=== PATIENT | female | born 1955 | race Caucasian/White ===

== ENCOUNTER 2019-09-20 08:14 | Outpatient (CLI) | payer MEDICARE, BC, SELFPAY ==
--- NOTE | 2019-09-20 08:41 | XR_ITS ---
WS: [id number] Right hip, AP and frog leg views, 09/20/2019 Clinical Data: RIGHT HIP PAIN Comparison: Bilateral hips, 02/13/2019. Findings: The right hip arthroplasty remains in good position. No loosening is seen. The adjacent right pelvis shows that the visualized SI joint and pubic symphysis are normal. XR/XR hip RT 2-3V wo/w pel* [id number] Impression: No change in right hip arthroplasty.
== END 2019-09-20 08:15 | disposition home or self-care (01) ==
LOC: RAD 08:21
PROVIDERS: Family Provider Family Medicine; PCP Family Medicine; Visit Provider Orthopaedic Surgery
DX: M25.551 Pain in right hip (principal); M25.552 Pain in left hip
CPT/HCPCS: 73502

== ENCOUNTER 2020-01-09 13:30 | Outpatient (RCR) | payer MEDICARE, BC, SELFPAY | END 2020-01-31 23:59 | disposition home or self-care (01) | LOC: SPT 13:30 | PROVIDERS: PCP Family Medicine; Referring Provider Orthopaedic Surgery; Visit Provider Orthopaedic Surgery | DX: Z47.89 Encounter for other orthopedic aftercare (principal) | CPT/HCPCS: 97110; 97161; 97530 ==

== ENCOUNTER 2020-02-01 06:00 | Outpatient (RCR) | payer MEDICARE, BC, SELFPAY | END 2020-02-27 10:48 | disposition home or self-care (01) | LOC: SPT 06:00 | PROVIDERS: PCP Family Medicine; Referring Provider Orthopaedic Surgery; Visit Provider Orthopaedic Surgery | DX: Z47.89 Encounter for other orthopedic aftercare (principal) | CPT/HCPCS: 97110; 97112 ==

== ENCOUNTER 2020-09-15 14:01 | Outpatient (CLI) | payer MEDICARE, BC, SELFPAY ==
--- NOTE | 2020-09-15 14:15 | XR_ITS ---
WS: [id number] Bone mineral density performed on a [employer] 09/15/2020 Clinical data: SCREENING FOR OSTEOPOROSIS Findings: The first 4 lumbar vertebral bodies demonstrated the bone mineral density of 0.779 g/cm2 for a young adult T score of -3.3. Measurement of the left forearm reveals a bone mineral density of 0.627 g/sq cm with a young adult T score of -2.8. XR/XR DEXA axial skeleton* [id number] Impression: Osteoporosis of the lumbar spine and left forearm.
== END 2020-09-15 14:02 | disposition home or self-care (01) ==
PROVIDERS: PCP Family Medicine; Visit Provider Family Medicine
DX: Z13.820 Encounter for screening for osteoporosis (principal); M81.6 Localized osteoporosis [Lequesne]
CPT/HCPCS: 77080

== ENCOUNTER 2021-03-12 09:37 | Outpatient (RCR) | payer MEDICARE, BC, SELFPAY | END 2021-04-01 23:59 | disposition home or self-care (01) | LOC: SPT 09:37 | PROVIDERS: PCP Family Medicine; Referring Provider Neurological Surgery; Visit Provider Neurological Surgery | DX: M51.36 Other intervertebral disc degeneration, lumbar region (principal); M43.06 Spondylolysis, lumbar region | CPT/HCPCS: 97110; 97161 ==

== ENCOUNTER 2022-03-06 13:34 | Emergency (ER) | payer MEDICARE, BC, SELFPAY ==
[2022-03-06 13:38] VITALS: BP 146/87; PULSE 59; RESP 18; TEMP 36.6; O2SAT 96; BMI 28.5
--- NOTE | 2022-03-06 13:47 | ECG_ITS ---
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 Measurements Intervals [place] Rate: 54 P: 36 CA: 216 QRS: -71 QRSD: 113 T: 33 QT: 425 QTc: 404 Interpretive Statements SINUS BRADYCARDIA WITH FIRST DEGREE AV BLOCK LEFT AXIS DEVIATION [QRS AXIS < -30] INCOMPLETE RIGHT BUNDLE BRANCH BLOCK No previous ECG available for comparison Electronically Signed On 03-07-2022 8:30:16 CDT by Jennifer Chiang M.D. [id number] f
--- NOTE | 2022-03-06 13:49 | XRR_ITS ---
PROCEDURE INFORMATION: Exam: XR Chest Exam date and time: 03/06/2022 2:12 PM Age: 66 years old Clinical indication: Chest wall pain/chest pain. TECHNIQUE: Imaging protocol: Radiologic exam of the chest. Views: 1 view. COMPARISON: No relevant prior studies available. FINDINGS: Tubes, catheters and devices: Probable loop recorder over the chest. Lungs: No pulmonary consolidation. Pleural spaces: No pleural effusion. No pneumothorax. Heart/Mediastinum: Borderline cardiomegaly. No gross evidence of pneumomediastinum. Diaphragm: Rounded opacity at the left base may reflect undulation of the diaphragm. A left basilar mass is difficult to exclude. Bones/joints: No gross fracture. XR/XR chest 1V portable [id number] IMPRESSION: 1. Rounded opacity at the left base may reflect undulation of the diaphragm. A left basilar mass is difficult to exclude. 2. Borderline cardiomegaly. 3. Recommend CT chest with contrast to further assess.
[2022-03-06 14:09] LABS: Basophils % 0.4 %; Eosinophils # 0.1 10^3/uL (0.0-0.8); Eosinophils % 1.6 %; Hematocrit 37.2 % (37.0-47.0); Lymphocytes # 1.6 10^3/uL (0.8-4.8); Mean Corpuscular HGB Conc 34.9 g/dL (30.0-36.0); Mean Corpuscular Hemoglobin 31.1 pg (28.0-34.0); Mean Platelet Volume 10.7 fL (7.4-10.4); Monocytes # 0.4 10^3/uL (0.2-0.9); Neutrophils # 4.69 10^3/uL (1.8-7.7); Neutrophils % 68.7 %; Nucleated Red Blood Cells % 0 %; Platelet Count 219 10^3/cmm (130-400); Red Blood Count 4.18 10^6/uL (4.1-5.3); Red Cell Distribution Width 11.9 % (12.1-15.1); White Blood Count 6.8 10^3/uL (4.0-10.0)
[2022-03-06 14:54] LABS: Alanine Aminotransferase 13 U/L (0-33); Alkaline Phosphatase 76 U/L (35-105); Blood Urea Nitrogen 14 mg/dL (8-23); Calcium 9.1 mg/dL (8.5-10.5); Carbon Dioxide 29 mmol/L (22-29); Chloride 102 mmol/L (98-107); Globulin 2.8 g/dL (1.3-4.6); Glomerular Filtration Rate 99.4 mL/min (90-130); Glucose 96 mg/dL (65-115); Osmolality Calculated 290 mOsm/kg (285-295); Sodium 140 mmol/L (136-145); Total Bilirubin 0.5 mg/dL (0.15-1.2); Total Protein 6.8 g/dL (6.6-8.7); Troponin(5th) Baseline 8 ng/L (0-10)
[2022-03-06 15:11] LABS: Anion Gap 13.2 (5-19); Aspartate Amino Transferase 20 U/L (0-32); Potassium 4.2 mmol/L (3.5-5.1)
[2022-03-06 16:40] LABS: Troponin 5 2HR 9.03 ng/L (0-10)
[2022-03-06 17:03] VITALS: BP 146/81; PULSE 53; RESP 16; O2SAT 97
--- NOTE | 2022-03-06 17:16 | ECG_ITS ---
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 Measurements Intervals [place] Rate: 55 P: CT: QRS: -83 QRSD: 121 T: 35 QT: 436 QTc: 418 Interpretive Statements ATRIAL FIBRILLATION WITH SLOW VENTRICULAR RESPONSE LEFT AXIS DEVIATION RIGHT BUNDLE BRANCH BLOCK Compared to ECG 03/06/2022 13:47:17 Right bundle-branch block now present Sinus bradycardia no longer present First degree AV block no longer present Incomplete right bundle-branch block no longer present Electronically Signed On 03-07-2022 8:33:57 CDT by Jennifer Chiang M.D. [id number]
[2022-03-06 17:26] LABS: Troponin 5 2HR Delta 1.03 ABS# (0-10)
--- NOTE | 2022-03-06 17:32 | CTR_ITS ---
PROCEDURE INFORMATION: Exam: CTA Chest With Contrast Exam date and time: 03/06/2022 6:20 PM Age: 66 years old Clinical indication: Dyspnea; Additional info: Dizzy a fib TECHNIQUE: Imaging protocol: Computed tomographic angiography of the chest with contrast. 3D rendering (Not supervised by radiologist): MIP and/or 3D reconstructed images were created by the technologist. Radiation optimization: All CT scans at this facility use at least one of these dose optimization techniques: automated exposure control; mA and/or kV adjustment per patient size (includes targeted exams where dose is matched to clinical indication); or iterative reconstruction. Contrast material: OMNI 350; Contrast volume: 82 ml; Contrast route: INTRAVENOUS (IV); COMPARISON: CR (CHEST, ) 03/06/2022 2:12 PM RADIATION DOSE METRICS: Total DLP (mGy-cm): 378.42 FINDINGS: Tubes, catheters and devices: Metallic recorder device over the anterior chest wall. Pulmonary arteries: No pulmonary embolus or aortic dissection. Aorta: Calcification of the thoracic aorta and/or great vessels consistent with atherosclerotic vessel disease. Lungs: Unremarkable. No consolidation. No masses. Pleural spaces: Unremarkable. No pneumothorax. No pleural effusion. Heart: Severe calcified coronary artery disease. Lymph nodes: Unremarkable. No enlarged lymph nodes. Gallbladder and bile ducts: Multiple gallstones within the gallbladder. Bones/joints: Dextroscoliosis. Soft tissues: Unremarkable. CT/CT angio chest PE protcl [id number] IMPRESSION: 1. No pulmonary embolus or aortic dissection. 2. Severe calcified coronary artery disease. 3. Multiple gallstones within the gallbladder.
[2022-03-06] MEDS: iohexol 350 mg/mL 100 mL Btl 95 ML IV (18:23)
[2022-03-06 20:20] LABS: Troponin 5 6HR 8.49 ng/L (0-10)
[2022-03-06 20:33] LABS: Troponin 5 6HR Delta 0.49 ng/L (0-12)
[2022-03-06 20:48] LABS: Add Urine Microscopic? YES; Bilirubin Urine Neg (Negative); Blood Urine Neg (Negative); Glucose Urine UA Norm (Normal); Ketones Urine 1+ (Negative); Leukocyte Esterase Urine 1+ (Negative); Nitrate Urine Negative (Negative); Protein Urine Trace (Negative); Urine Appearance Clear (CLEAR); Urine Color Yellow (Yellow); Urobilinogen Urine Neg (Negative); pH Urine 5 (5-7)
[2022-03-06 20:50] LABS: Add Urine Culture? No; Bacteria Urine TRACE /hpf; RBC Urine 0-4 /hpf (0-2); WBC Urine 0-4 /hpf (0-5)
--- NOTE | 2022-03-06 21:10 | ED_ITS ---
HPI - Dizziness General: Chief Complaint: Dizziness Stated Complaint: Dizziness and shooting chest pain Time Seen by Provider: 03/06/22 17:02 History of Present Illness: HPI Narrative: 66-year-old female patient presents to the emergency department complaining of dizziness that started this a.m. Patient states over the last few weeks she has had some sharp pains that shoot across her left breast. Patient states she does have history of A. fib but has not been in A. fib to her knowledge. Patient does have a loop recorder and states she has not been made aware of any atrial fibrillation. Patient is on a blood thinner. Patient denies any shortness of breath. Patient denies any back pain. Patient denies any abdominal pain. Patient denies any headache or vision changes. Patient states the dizziness is currently resolved at this time. Patient denies any fever cough or congestion. Associated symptoms: Reports chest pain; Denies change in hearing, chills, diaphoresis, ear discharge, headache(s), malaise, nausea, nasal congestion, palpitations, syncope, tinnitus or vomiting Associated neuro symptoms: Deny confusion, dysphagia or numbness in extremities Review of Systems Const: Denies: fever(s), chills, body aches, change in appetite, change in weight, fatigue, malaise or diaphoresis Eyes: Denies: change in vision, blurry vision, blind spots, photophobia, eye discomfort, eye discharge, eye redness, floaters or seeing flashes ENMT: Denies: throat pain, uvular edema, enlarged tonsils, odynophagia, hoarseness, mouth pain, swelling of lips/tongue, oral sores, bleeding gums, dental pain, dry mouth, ear or mastoid pain, ear discharge, change in hearing, tinnitus, disequilibrium, nasal discharge, nasal congestion, post nasal drip or sinus pain Card: Reports: chest pain; Denies: palpitations, irregular heart rhythm, edema, swelling of feet/ankles, lightheadedness, syncope, pre-syncope, dyspnea on exertion, orthopnea, leg pain with exertion or acrocyanosis Resp: Denies: dyspnea, productive cough, non-productive cough, wheezing, stridor, pain on inspiration, change in phlegm color, hemoptysis or chest congestion GI: Denies: abdominal pain, nausea, vomiting, hematemesis, dysphagia, diarrhea, constipation, GI cramping, change in bowel habits or rectal pain : Denies: flank pain, difficulty voiding, dysuria, urinary frequency, urinary urgency, urinary hesitancy or hematuria Musc: Denies: neck pain, back pain, extremity pain, extremity swelling, joint pain, joint swelling, joint redness, joint warmth or deformity Skin/Breast: Denies: rash, pruritus, erythema, sores, new lesions, changes in skin color or dry skin Neuro: Reports: dizziness; Denies: headache(s), numbness in extremities, weakness in extremities, sensory changes, lack of coordination, difficulty walking, frequent falls, vertigo, confusion, behavioral changes, Slurred speech present, difficulty communicating thoughts or seizure-like activity Psych: Denies: anxiety, depression, suicidal ideation or homicidal ideation Endo: Denies: polyuria, polydipsia, tired all the time, cold intolerance, excessive sweating, flushing, hot flashes or heat intolerance Sean/Lymph: Denies: easy bruising, easy bleeding, petechiae, purpura, enlarged lymph nodes or tender lymph nodes All/Imm: Denies: urticaria, throat swelling, tongue swelling, facial swelling, acute wheezing or itchy eyes PFSH ED PFSH: Medical History Atrial fibrillation Dyslipidemia Hypertension Family History Father Cancer Social History Smoking and tobacco status: never smoked Physical Exam Const: COMMON NORMALS: no acute distress, patient oriented x3, healthy appearing, alert and well nourished GENERAL APPEARANCE: cooperative, comfortable, well kempt and well developed; not ill appearing ORIENTATION/CONSCIOUSNESS: Yes awake, Yes oriented to person, Yes oriented to place and Yes oriented to time HENMT: COMMON NORMALS: normocephalic, atraumatic, hearing grossly normal bi laterally, external ears normal, EAC's normal, TM's normal bilaterally, Normal external nose present, Normal nasal mucous membranes and turbinates present and moist oral mucous membranes HEAD & SCALP: normal to inspection, normocephalic and atraumatic FACE & SINUS: normal facial exam, sinuses nontender and face symmetric NOSE: Normal external nose present, Normal nares present, Normal nasal mucous membranes and turbinates present, No nasal discharge present and Abnormal external nose present EXTERNAL EAR: Yes external ears normal and Yes mastoids normal EXTERNAL AUDITORY CANAL: EAC's normal TYMPANIC MEMBRANE: TM's normal bilaterally MOUTH: Normal oral and palatal mucosa present, lip normal, tongue normal and Normal salivary glands and ducts present THROAT: no uvular edema Eye: COMMON NORMALS: Equal, round and reactive pupils present, EOMs intact bilaterally, conjunctivae normal and no scleral icterus GENERAL EYE: appearance normal, both eyes and all related structures EYELID: eyelids normal CONJUNCTIVA: Yes conjunctivae normal SCLERA: sclerae normal CORNEA: Yes corneas normal PUPIL: Yes Equal, round and reactive pupils present Neck/C-Spine: COMMON NORMALS: full ROM, no lymphadenopathy, supple, no meningeal signs, no JVD and Thyroid normal GENERAL: Yes normal visual i nspection and Yes trachea midline THYROID: Thyroid normal CERVICAL SPINE: Yes cervical ROM normal Lymph: LYMPHATIC: no lymphadenopathy noted and no lymphedema noted Chest: COMMONS NORMALS: normal inspection of the chest and normal palpation of entire chest wall Resp: COMMON NORMALS: normal respiratory effort, No retractions, No use of accessory muscles and clear to auscultation bilaterally EFFORT & INSPECTION: Yes able to speak in complete sentences and Yes symmetric chest movement AUSCULTATION: clear to auscultation bilaterally Cardio: COMMON NORMALS: no JVD GI: COMMON NORMALS: Normal to inspection, nondistended, normoactive bowel sounds present, Soft to palpation, non-tender, no masses and no bruits INSPECTION: Yes normal to inspection AUSCULTATION: Yes normoactive bowel sounds PALPATION: Yes Soft to palpation : COMMON NORMALS: Yes no CVA tenderness, Yes normal external appearance, Yes normal appearance of the vagina, Yes normal appearance of the cervix, Yes No adnexal tenderness and Yes no masses BLADDER/KIDNEY EXAM: Yes no CVA tenderness Back/Pelvis: COMMON NORMALS: no CVA tenderness, thoracic and lumbar spine normal to inspection, no thoracic nor lumbar tenderness, thoraco-lumbar ROM normal and straight leg raise negative bilaterally THORACIC SPINE/UPPER BACK: Yes normal to inspection LUMBAR SPINE/LOWER BACK: Yes normal to inspection Extremity: COMMON NORMALS: normal to inspection, full ROM and capillary refill normal GENERAL: Yes normal exam except as noted Neuro: COMMON NORMALS: patient oriented x3, CN's II-XII intact bilaterally, moves all extremities, no focal motor deficits, no sensory deficits noted and gait normal SENSORIUM/ORIENTATION: Yes alert, Yes oriented to person, Yes oriented to place and Yes oriented to time MENINGEAL SIGNS: Yes no meningeal signs CRANIAL NERVES: Yes CN normal except as noted SPEECH: speech normal GAIT: Yes Normal gait present SENSORY EXAM: Yes extremities Psych: COMMON NORMALS: mental status grossly normal, Normal thought process present, cooperative, normal affect, speech normal, activity/motor behavior normal, denies hallucinations, denies homicidal ideation and denies suicidal ideation APPEARANCE: Yes grossly normal and Yes well kempt ATTITUDE: Yes calm ACTIVITY/MOTOR BEHAVIOR: Yes appropriate eye contact SPEECH: Yes normal speech THOUGHT PROCESS: Normal thought process present THOUGHT CONTENT: Yes Normal thought content present ATTENTION/CONCENTRATION: Yes attention grossly intact MEMORY/COGNITION: Yes memory grossly intact INSIGHT: Good insight present (Psych) JUDGEMENT: Good judgement present (Psych) Skin: COMMON NORMALS: no rashes or lesions noted, no wounds, turgor normal, no jaundice, no petechiae and no mottling GENERAL SKIN EXAM: no rashes or lesions noted and turgor normal Course Vital Signs: Vital signs: Vital Signs Temperature 98 F 03/06/22 13:38 Pulse Rate 53 L 03/06/22 17:03 Respiratory Rate 16 03/06/22 17:03 Blood Pressure 146/81 03/06/22 17:03 Pulse Oximetry 97 03/06/22 17:03 Oxygen Delivery Me thod 03/06/22 17:03 MDM - Dizziness Medical Decision Making Patient is well-appearing nontoxic and in no acute [id number] female patient presents to the emergency department complaining of dizziness that started this a.m. Patient states over the last few weeks she has had some sharp pains that shoot across her left breast. Patient states she does have history of A. fib but has not been in A. fib to her knowledge. Patient does have a loop recorder and states she has not been made aware of any atrial fibrillation. Patient is on a blood thinner. Patient denies any shortness of breath. Patient denies any back pain. Patient denies any abdominal pain. Patient denies any headache or vision changes. Patient states the dizziness is currently resolved at this time. Patient denies any fever cough or congestion. Patient heart rate is in the 50s. Patient states this is normal for her patient is currently in atrial fibrillation. Patient arrives to the emergency department chest pain and dizziness free. There was a concerning mass that nee ded to be excluded based on chest x-ray findings therefore I did order a CT chest given patient's history of A. fib I did order CTA chest there is no evidence of pulmonary emboli or gallstones noted on CTA. 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 Labs do not reveal any concerning findings. EKG does not show any ST elevation or depression. [place] was within normal limits this making cardiac ischemia very unlikely. I do not feel patient would benefit from any further emergent testing patient is medically cleared and appropriate for discharge. I did offer to check magnesium level and TSH level as I explained this can cause arrhythmias patient declines having these tests done. Lab Data : 03/06/22 14:00 03/06/22 14:00 Radiology Impressions Chest X-Ray 03/06/22 13:49 IMPRESSION: 1. Rounded opacity at the left base may reflect undulation of the diaphragm. A left basilar mass is difficult to exclude. 2. Borderline cardiomegaly. 3. Recommend CT chest with contrast to further assess. Chest CTA 03/06/22 17:32 IMPRESSION: 1. No pulmonary embolus or aortic dissection. 2. Severe calcified coronary artery disease. 3. Multiple gallstones within the gallbladder. Laboratory Results WBC 6.8 10^3/uL (4.0-10.0) 03/06/22 14:00 RBC 4.18 10^6/uL (4.1-5.3) 03/06/22 14:00 Hgb 13.0 g/dL (11.5-15.3) 03/06/22 14:00 Hct 37.2 % (37.0-47.0) 03/06/22 14:00 MCV 89.0 fl (81-99) 03/06/22 14:00 MCH 31.1 pg (28.0-34.0) 03/06/22 14:00 MCHC 34.9 g/dL (30.0-36.0) 03/06/22 14:00 RDW 11.9 % (12.1-15.1) L 03/06/22 14:00 Plt Count 219 10^3/cmm (130-400) 03/06/22 14:00 MPV 10.7 fL (7.4-10.4) H 03/06/22 14:00 Neut % (Auto) 68.7 % 03/06/22 14:00 Lymph % (Auto) 23.0 % 03/06/22 14:00 [place] % (Auto) 6.0 % 03/06/22 14:00 Eos % (Auto) 1.6 % 03/06/22 14:00 Baso % (Auto) 0.4 % 03/06/22 14:00 Neut # (Auto) 4.69 10^3/uL (1.8-7.7) 03/06/22 14:00 Lymph # (Auto) 1.6 10^3/uL (0.8-4.8) 03/06/22 14:00 [place] # (Auto) 0.4 10^3/uL (0.2-0.9) 03/06/22 14:00 Eos # (Auto) 0.1 10^3/uL (0.0-0.8) 03/06/22 14:00 Baso # (Auto) 0.0 10^3/uL (0.0-0.1) 03/06/22 14:00 Nucleated RBC % (auto) 0 % 03/06/22 14:00 Nucleated RBCs # 0.0 /100WBC 03/06/22 14:00 Sodium 140 mmol/L (136-145) 03/06/22 14:00 Potassium 4.2 mmol/L (3.5-5.1) 03/06/22 14:00 Chloride 102 mmol/L (98-107) 03/06/22 14:00 Carbon Dioxide 29 mmol/L (22-29) 03/06/22 14:00 Anion Gap 13.2 (5-19) 03/06/22 14:00 BUN 14 mg/dL (8-23) 03/06/22 14:00 Creatinine 0.6 mg/dL (0.5-0.9) 03/06/22 14:00 GFR Calculation 99.4 mL/min (90-130) 03/06/22 14:00 Glucose 96 mg/dL (65-115) 03/06/22 14:00 Calculated Osmolality 290 mOsm/kg (285-295) 03/06/22 14:00 Calcium 9.1 mg/dL (8.5-10.5) 03/06/22 14:00 Total Bilirubin 0.5 mg/dL (0.15-1.2) 03/06/22 14:00 AST 20 U/L (0-32) 03/06/22 14:00 ALT 13 U/L (0-33) 03/06/22 14:00 Alkaline Phosphatase 76 U/L (35-105) 03/06/22 14:00 Troponin T Baseline 8 ng/L (0-10) 03/06/22 14:00 Troponin T 120 Minute 9.03 ng/L (0-10) 03/06/22 15:54 Delta Troponin T 1.03 ABS# (0-10) 03/06/22 15:54 Troponin T Hi Sens 6Hr 8.49 ng/L (0-10) 03/06/22 19:55 Troponin T Hi Sens 6Hr Delta 0.49 ng/L (0-12) 03/06/22 19:55 Total Protein 6.8 g/dL (6.6-8.7) 03/06/22 14:00 Albumin 4.0 g/dL (3.5-5.2) 03/06/22 14:00 Globulin 2.8 g/dL (1.3-4.6) 03/06/22 14:00 Urine Color Yellow (Yellow) 03/06/22 20:10 Urine Appearance Clear (CLEAR) 03/06/22 20:10 Urine pH 5 (5-7) 03/06/22 20:10 Ur Specific [place] 1.000 (1.005-1.030) L 03/06/22 20:10 Urine Protein Trace (Negative) 03/06/22 20:10 Urine Glucose (UA) Norm (Normal) 03/06/22 20:10 Urine Ketones 1+ (Negative) H 03/06/22 20:10 Urine Blood Neg (Negative) 03/06/22 20:10 Urine Nitrate Negative (Negative) 03/06/22 20:10 Urine Bilirubin Neg (Negative) 03/06/22 20:10 Urine Urobilinogen Neg mg/dL (Negative) 03/06/22 20:10 Ur Leukocyte Esterase 1+ (Negative) H 03/06/22 20:10 Urine RBC 0-4 /hpf (0-2) H 03/06/22 20:10 Urine WBC 0-4 /hpf (0-5) H 03/06/22 20:10 Ur Squamous Epith Cells None /hpf (0-5) 03/06/22 20:10 Amorphous Sediment Not Reportable 03/06/22 20:10 Urine Bacteria Trace /hpf (NONE) 03/06/22 20:10 Discharge Plan Discharge Condition: Stable Prescriptions: No Action propafenone 225 mg tablet 225 mg PO Q8H magnesium oxide 250 mg magnesium tablet 500 mg PO EVERY OTHER DAY cetirizine [Zyrtec] 10 mg tablet 10 mg PO DAILY PRN (Reason: Allergy Symptoms) Xarelto 20 mg tablet 20 mg PO DAILY Rx Instructions: must administer with evening meal dorzolamide-timolol 22.3-6.8 mg/mL drops 1 drp ophthalmic (eye) BID Rx Instructions: left eye ergocalciferol (vitamin D2) 1,250 mcg (50,000 unit) capsule 1,250 mcg PO Q7D Rx Instructions: On Fridays sucralfate 100 mg/mL suspension 10 ml PO QID PRN (Reason: Stomach Upset) dicyclomine 20 mg tablet 20 mg PO QID PRN (Reason: IBS) Mucinex 1,200 mg Tablet Extended Release 12hr 1,200 mg PO Q12H PRN (Reason: Congestion) Referrals: Selene Neves DO [Primary Care Provider] - Coding Level of Care Code ED Lead Manufacturing Technician for Isaac Garces
[2022-03-06 21:32] VITALS: PULSE 58; RESP 19; O2SAT 100
== END 2022-03-06 21:34 | disposition home or self-care (01) ==
PROVIDERS: Emergency Medicine; Emergency Provider Registered Nurse; PCP Family Medicine
DX: R42 Dizziness and giddiness (principal); E78.5 Hyperlipidemia, unspecified; I10 Essential (primary) hypertension
CPT/HCPCS: 36415; 71045; 71275; 80053; 81001; 84484; 85025; 93005; 99285; Q9967

== ENCOUNTER → 2023-02-24 08:48 | Outpatient (BNVA) | payer MEDICARE, SELFPAY | PROVIDERS: PCP Family Medicine; Visit Provider Internal Medicine | DX: I48.91 Unspecified atrial fibrillation (principal); E78.5 Hyperlipidemia, unspecified; I10 Essential (primary) hypertension; Z79.01 Long term (current) use of anticoagulants | CPT/HCPCS: 99214 ==

== ENCOUNTER → 2023-07-05 12:47 | Outpatient (BNVA) | payer MEDICARE, SELFPAY | PROVIDERS: PCP Family Medicine; Referring Provider Family Medicine; Visit Provider Dermatology | DX: L82.1 Other seborrheic keratosis (principal); D48.5 Neoplasm of uncertain behavior of skin; L81.4 Other melanin hyperpigmentation; L57.8 Other skin changes due to chronic exposure to nonionizing radiation; D22.5 Melanocytic nevi of trunk | CPT/HCPCS: 11102; 99203 ==

== ENCOUNTER 2023-10-31 09:57 | Observation (INO) | payer MEDICARE, SELFPAY ==
[2023-10-31] VITALS (13 sets, daily range): BP systolic 101–159; BP diastolic 62–100; PULSE 46–64; RESP 12–81; TEMP 36.4–36.7; O2SAT 94–99; BMI 27.9
--- NOTE | 2023-10-31 10:23 | ECG_ITS ---
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 Measurements Intervals [place] Rate: 61 P: 0 LA: 0 QRS: -87 QRSD: 145 T: 66 QT: 406 QTc: 409 Interpretive Statements UNCERTAIN REGULAR RHYTHM LEFT AXIS DEVIATION [QRS AXIS < -30] INTRAVENTRICULAR CONDUCTION DELAY [130+ ms QRS DURATION] Compared to ECG 03/06/2022 17:16:38 Intraventricular conduction delay now present Atrial fibrillation no longer present Right bundle-branch block no longer present Electronically Signed On 10-31-2023 17:24:50 CDT by Madhu Hector M.D. [id number]
--- NOTE | 2023-10-31 10:23 | ED_ITS ---
Documented by User: RIKY Whitaker 10/31/23 13:30 HPI - Overdose 2 General: Chief Complaint: General Medical Stated Complaint: dr appiah, took too much Heart meds by accident Time Seen by Provider: 10/31/23 10:19 Source: patient and family (daughter) Mode of arrival: wheelchair Limitations: no limitations History of Present Illness: Patient is a nice 68-year-old female with a history of atrial fibrillation here along with her daughter for evaluation of an accidental overdose. Patient takes Rythmol for her atrial fibrillation at a dose of 225 mg every 8 hours. Patient states around 7 AM she took her normal morning dose and then approximately 2-2.5 hours later she meant to take for antibiotic tablets for an upcoming dental procedure and later noticed that she accidentally took 4 additional Rythmol. Patient upon arrival feels okay although admittedly is a little anxious. Patient has been on this medication for several years. She states other home medications include Xarelto. I have discussed case with poison control who was concerned regarding the amount. They stated that a toxic dose is usually double her usual single dose so she is obviously quite a bit above this. They did state peak life of the drug is 3.5 hours. Half-life is approximately 5 hours but can be anywhere between 2 to 10 hours depending on how she metabolizes. Side effects of this medication include seizure, bradycardia, hypotension, nausea/vomiting, dizziness as well as cardiac abnormalities including QRS widening, AV blocks, prolonged QT, V tach, and rarely torsades. Discussed case with Dr. Herrera, law writer on-call, who agrees with decision to admit to hospital. He is available for consult if needed. Recommend serial EKGs and telemetry. complaint: accidental overdose Onset (ago): hour(s) Timing confirmed by: family member Treatments Prior to Arrival: none Review of Systems 2 Eyes: Denies: change in vision or blurry vision Card: Reports: irregular heart rhythm (chronic-atrial fib); Denies: chest pain, palpitations, edema, swelling of feet/ankles, lightheadedness, syncope, pre-syncope or orthopnea Resp: Denies: dyspnea GI: Denies: abdominal pain, nausea or vomiting Neuro: Denies: headache(s), numbness in extremities, weakness in extremities, sensory changes, dizziness or confusion PFSH ED 2 PFSH: Medical History Dyslipidemia Hypertension Atrial fibrillation Family History Father Cancer Social History Smoking and tobacco/nicotine status: never used tobacco/nicotine Physical Exam 2 Const: COMMON NORMALS: no acute distress, average body habitus, patient oriented x3, no limitations, healthy appearing, alert and well nourished G ENERAL APPEARANCE: cooperative ORIENTATION/CONSCIOUSNESS: Yes awake, Yes oriented to person, Yes oriented to place and Yes oriented to time Resp: COMMON NORMALS: normal respiratory effort and clear to auscultation bilaterally AUSCULTATION: clear to auscultation bilaterally Cardio: COMMON NORMALS: regular rate and regular rhythm RATE: regular rate RHYTHM: regular rhythm Extremity: GENERAL: Yes normal exam except as noted Neuro: HEMANTH COMA SCALE: document GCS findings [place] coma scale eye opening: Spontaneous [place] coma scale verbal response: Orientated Hemanth coma scale motor response: Obey commands Hemanth coma scale total score: 15 COMMON NORMALS: patient oriented x3, moves all extremities, no focal motor deficits and no sensory deficits noted SENSORIUM/ORIENTATION: Yes alert, Yes oriented to person, Yes oriented to place and Yes oriented to time Course 2 Consultations: Consultation #1: Dr. Herrera-reported when he looked up information regarding this drug he found that toxic dose was closer to 1800 mg; he did agree with decision for admission and telemetry and serial EKGs. He did state if patient started going into a heart block or severe bradycardia we could give IV glucagon and hypertonic saline; he is available for consult on this patient if needed Consultation #2: Dr. Ibarra-will admit patient Vital Signs: Vital signs: Vital Signs Temperature 98.1 F 10/31/23 10:06 Pulse Rate 46 L 10/31/23 12:30 Respiratory Rate 12 10/31/23 12:30 Blood Pressure 101/62 10/31/23 12:30 Pulse Oximetry 96 10/31/23 12:30 Oxygen Delivery Me thod Room Air 10/31/23 12:30 MDM - Overdose Medical Decision Making Discussed with midlevel. Agree with assessment and plan agree with admission orders written for hospitalist to ICU. Dr. Bonilla aware of this patient. I consulted with cardiology and spoke to hospitalist for ICU admission. Patient will need serial EKGs and telemetry. Dr. Herrera and Dr. Ibarra who both evaluated patient here in the emergency department. She does have prolonging QTc's, bradycardia, and a first-degree AV block. She has been given sodium bicarb and IV glucagon. Differential Diagnosis Likely drug overdose and accidental drug ingestion Medical Records I reviewed the patient's medical records. Lab Data I reviewed the patient's lab results. 10/31/23 10:56 10/31/23 10:56 Laboratory Results WBC 5.30 10^3/uL (3.29-11.43) 10/31/23 10:56 RBC 4.18 10^6/uL (3.85-5.65) 10/31/23 10:56 Hgb 13.00 g/dL (11.27-16.99) 10/31/23 10:56 Hct 36.2 % (36-47) 10/31/23 10:56 MCV 86.6 fl (85-98) 10/31/23 10:56 MCH 31.1 pg (27-33) 10/31/23 10:56 MCHC 35.9 g/dL (30-55) 10/31/23 10:56 RDW 12.2 % (12.1-15.1) 10/31/23 10:56 Plt Count 225 10^3/cmm (157-399) 10/31/23 10:56 MPV 11.0 fL (7.4-10.4) H 10/31/23 10:56 Neut % (Auto) 67.1 % 10/31/23 10:56 Lymph % (Auto) 22.5 % 10/31/23 10:56 [place] % (Auto) 8.1 % 10/31/23 10:56 Eos % (Auto) 1.5 % 10/31/23 10:56 Baso % (Auto) 0.6 % 10/31/23 10:56 Neut # (Auto) 3.56 10^3/uL (1.8-7.7) 10/31/23 10:56 Lymph # (Auto) 1.2 10^3/uL (0.8-4.8) 10/31/23 10:56 [place] # (Auto) 0.4 10^3/uL (0.2-0.9) 10/31/23 10:56 Eos # (Auto) 0.1 10^3/uL (0.0-0.8) 10/31/23 10:56 Baso # (Auto) 0.0 10^3/uL (0.0-0.1) 10/31/23 10:56 Nucleated RBC % (auto) 0 % 10/31/23 10:56 Nucleated RBCs # 0.0 /100WBC 10/31/23 10:56 Sodium 135 mmol/L (136-145) L 10/31/23 10:56 Potassium 4.1 mmol/L (3.5-5.1) 10/31/23 10:56 Chloride 101 mmol/L (98-107) 10/31/23 10:56 Carbon Dioxide 25 mmol/L (22-29) 10/31/23 10:56 Anion Gap 13.1 (5-19) 10/31/23 10:56 BUN 14 mg/dL (8-23) 10/31/23 10:56 Creatinine 0.6 mg/dL (0.5-0.9) 10/31/23 10:56 GFR Calculation 98.8 mL/min (90-130) 10/31/23 10:56 Glucose 111 mg/dL (65-115) 10/31/23 10:56 Calculated Osmolality 281 mOsm/kg (285-295) L 10/31/23 10:56 Calcium 8.8 mg/dL (8.5-10.5) 10/31/23 10:56 Magnesium 2.0 mg/dL (1.7-2.3) 10/31/23 10:56 Total Bilirubin 0.5 mg/dL (0.15-1.2) 10/31/23 10:56 AST 16 U/L (0-32) 10/31/23 10:56 ALT 11 U/L (0-33) 10/31/23 10:56 Alkaline Phosphatase 70 U/L (35-105) 10/31/23 10:56 Total Protein 6.5 g/dL (6.6-8.7) L 10/31/23 10:56 Albumin 3.9 g/dL (3.5-5.2) 10/31/23 10:56 Globulin 2.6 g/dL (1.3-4.6) 10/31/23 10:56 Procalcitonin 0.04 ng/mL (0-0.5) 10/31/23 10:56 TSH 2.14 uIU/mL (0.27-4.20) 10/31/23 10:56 Salicylates < 0.3 mg/dL (3-10) L 10/31/23 10:56 Acetaminophen < 5.0 ug/mL (10-30) L 10/31/23 10:56 Discharge Plan Discharge Patient Disposition: Admitted As Inpatient Admit Provider: Filippo Mercado Clinical Impression: Accidental overdose Qualifiers: Encounter type: initial encounter Qualified Code(s): T50.901A - Poisoning by unspecified drugs, medicaments and biological substances, accidental (unintentional), initial encounter Condition: Stable Coding Level of Care Code ED Maxillofacial Prosthetics Dentist for Chg Fwd Documented by User: Xavi Bonilla DO 10/31/23 11:33 HPI - Overdose 2 General: Chief Complaint: General Medical Stated Complaint: dr appiah, took too much Heart meds by accident Time Seen by Provider: 10/31/23 10:19 [facility] ED 2 PFSH: Medical History Dyslipidemia Hypertension Atrial fibrillation Family History Father Cancer Social History Smoking and tobacco/nicotine status: never used tobacco/nicotine Physical Exam 2 Neuro: HEMANTH COMA SCALE: document GCS findings [place] coma scale total score: 15 Course 2 Vital Signs: Vital signs: Vital Signs Temperature 98.1 F 10/31/23 10:06 Pulse Rate 46 L 10/31/23 12:30 Respiratory Rate 12 10/31/23 12:30 Blood Pressure 101/62 10/31/23 12:30 Pulse Oximetry 96 10/31/23 12:30 Oxygen Delivery Me thod Room Air 10/31/23 12:30 MDM - Overdose Medical Decision Making Discussed with midlevel. Agree with assessment and plan agree with admission orders written for hospitalist to ICU. Lab Data 10/31/23 10:56 10/31/23 10:56 Laboratory Results WBC 5.30 10^3/uL (3.29-11.43) 10/31/23 10:56 RBC 4.18 10^6/uL (3.85-5.65) 10/31/23 10:56 Hgb 13.00 g/dL (11.27-16.99) 10/31/23 10:56 Hct 36.2 % (36-47) 10/31/23 10:56 MCV 86.6 fl (85-98) 10/31/23 10:56 MCH 31.1 pg (27-33) 10/31/23 10:56 MCHC 35.9 g/dL (30-55) 10/31/23 10:56 RDW 12.2 % (12.1-15.1) 10/31/23 10:56 Plt Count 225 10^3/cmm (157-399) 10/31/23 10:56 MPV 11.0 fL (7.4-10.4) H 10/31/23 10:56 Neut % (Auto) 67.1 % 10/31/23 10:56 Lymph % (Auto) 22.5 % 10/31/23 10:56 [place] % (Auto) 8.1 % 10/31/23 10:56 Eos % (Auto) 1.5 % 10/31/23 10:56 Baso % (Auto) 0.6 % 10/31/23 10:56 Neut # (Auto) 3.56 10^3/uL (1.8-7.7) 10/31/23 10:56 Lymph # (Auto) 1.2 10^3/uL (0.8-4.8) 10/31/23 10:56 [place] # (Auto) 0.4 10^3/uL (0.2-0.9) 10/31/23 10:56 Eos # (Auto) 0.1 10^3/uL (0.0-0.8) 10/31/23 10:56 Baso # (Auto) 0.0 10^3/uL (0.0-0.1) 10/31/23 10:56 Nucleated RBC % (auto) 0 % 10/31/23 10:56 Nucleated RBCs # 0.0 /100WBC 10/31/23 10:56 Sodium 135 mmol/L (136-145) L 10/31/23 10:56 Potassium 4.1 mmol/L (3.5-5.1) 10/31/23 10:56 Chloride 101 mmol/L (98-107) 10/31/23 10:56 Carbon Dioxide 25 mmol/L (22-29) 10/31/23 10:56 Anion Gap 13.1 (5-19) 10/31/23 10:56 BUN 14 mg/dL (8-23) 10/31/23 10:56 Creatinine 0.6 mg/dL (0.5-0.9) 10/31/23 10:56 GFR Calculation 98.8 mL/min (90-130) 10/31/23 10:56 Glucose 111 mg/dL (65-115) 10/31/23 10:56 Calculated Osmolality 281 mOsm/kg (285-295) L 10/31/23 10:56 Calcium 8.8 mg/dL (8.5-10.5) 10/31/23 10:56 Magnesium 2.0 mg/dL (1.7-2.3) 10/31/23 10:56 Total Bilirubin 0.5 mg/dL (0.15-1.2) 10/31/23 10:56 AST 16 U/L (0-32) 10/31/23 10:56 ALT 11 U/L (0-33) 10/31/23 10:56 Alkaline Phosphatase 70 U/L (35-105) 10/31/23 10:56 Total Protein 6.5 g/dL (6.6-8.7) L 10/31/23 10:56 Albumin 3.9 g/dL (3.5-5.2) 10/31/23 10:56 Globulin 2.6 g/dL (1.3-4.6) 10/31/23 10:56 Procalcitonin 0.04 ng/mL (0-0.5) 10/31/23 10:56 TSH 2.14 uIU/mL (0.27-4.20) 10/31/23 10:56 Salicylates < 0.3 mg/dL (3-10) L 10/31/23 10:56 Acetaminophen < 5.0 ug/mL (10-30) L 10/31/23 10:56 All radiology interpretation(s) finalized by discharge Discharge Plan Discharge Patient Disposition: Admitted As Inpatient Admit Provider: Filippo Mercado Clinical Impression: Accidental overdose Qualifiers: Encounter type: initial encounter Qualified Code(s): T50.901A - Poisoning by unspecified drugs, medicaments and biological substances, accidental (unintentional), initial encounter Condition: Stable Coding Level of Care Code ED Maxillofacial Prosthetics Dentist for Isaac Garces
[2023-10-31] MEDS: sodium chloride 0.9% 1,000 ML 999 ML IV (10:56)
--- NOTE | 2023-10-31 10:56 | ECG_ITS ---
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 Measurements Intervals [place] Rate: 51 P: 37 IA: 242 QRS: 236 QRSD: 158 T: 3 QT: 467 QTc: 431 Interpretive Statements SINUS BRADYCARDIA WITH SINUS ARRHYTHMIA WITH FIRST DEGREE AV BLOCK RIGHT AXIS DEVIATION [QRS AXIS > 100] RIGHT BUNDLE BRANCH BLOCK [120+ ms QRS DURATION, UPRIGHT V1, 40+ ms S IN I/aVL/V4/V5/V6] Compared to ECG 10/31/2023 10:12:29 First degree AV block now present Right-axis deviation now present Right bundle-branch block now present Left-axis deviation no longer present Intraventricular conduction delay no longer present Electronically Signed On 10-31-2023 17:23:44 CDT by Madhu Hector M.D. [id number]
[2023-10-31 11:06] LABS: Basophils % 0.6 %; Eosinophils # 0.1 10^3/uL (0.0-0.8); Eosinophils % 1.5 %; Hematocrit 36.2 % (36-47); Lymphocytes # 1.2 10^3/uL (0.8-4.8); Lymphocytes % 22.5 %; Mean Corpuscular HGB Conc 35.9 g/dL (30-55); Mean Corpuscular Hemoglobin 31.1 pg (27-33); Mean Corpuscular Volume 86.6 fl (85-98); Monocytes # 0.4 10^3/uL (0.2-0.9); Monocytes % 8.1 %; Neutrophils # 3.56 10^3/uL (1.8-7.7); Neutrophils % 67.1 %; Nucleated Red Blood Cells % 0 %; Platelet Count 225 10^3/cmm (157-399); Red Blood Count 4.18 10^6/uL (3.85-5.65); Red Cell Distribution Width 12.2 % (12.1-15.1)
[2023-10-31] MEDS: LORazepam 2 mg/mL INJ 10 mL MDV 0.5 MG IVP (11:29)
[2023-10-31] MEDS: glucagon 1 mg/mL KIT 1 mL IVP ×2 (11:33→13:11)
[2023-10-31 11:40] LABS: Alanine Aminotransferase 11 U/L (0-33); Albumin Level 3.9 g/dL (3.5-5.2); Alkaline Phosphatase 70 U/L (35-105); Anion Gap 13.1 (5-19); Aspartate Amino Transferase 16 U/L (0-32); Blood Urea Nitrogen 14 mg/dL (8-23); Calcium 8.8 mg/dL (8.5-10.5); Carbon Dioxide 25 mmol/L (22-29); Chloride 101 mmol/L (98-107); Creatinine Clr Calc Pharmacy 69.1774; Globulin 2.6 g/dL (1.3-4.6); Glomerular Filtration Rate 98.8 mL/min (90-130); Glucose 111 mg/dL (65-115); Osmolality Calculated 281 mOsm/kg (285-295); Potassium 4.1 mmol/L (3.5-5.1); Sodium 135 mmol/L (136-145); Thyroid Stimulating Hormone 2.14 uIU/mL (0.27-4.20); Total Bilirubin 0.5 mg/dL (0.15-1.2); Total Protein 6.5 g/dL (6.6-8.7)
[2023-10-31 11:41] LABS: Acetaminophen < 5.0 ug/mL (10-30); Salicylate < 0.3 mg/dL (3-10)
--- NOTE | 2023-10-31 11:54 | P.HP_ITS ---
Providers/Chief Complaint 2 Primary Care Provider: Selene Neves DO Chief Complaint: td, took too much Heart meds by accident History of Present Illness Ximena Guadarrama is a 68 year old female with past medical history of atrial fibrillation on propafenone, anticoagulation with Xarelto who was to undergo a dental procedure in few days. Patient was to take 4 tablets of antibiotic prior to her procedure but by mistake instead of taking the antibiotic took 4 extra tablets of propafenone. Overall she took 5 tablets of 4 mg in the morning. She present to the ER complaining of nausea and mild dizziness. In the ER she was found to have heart rate running in 50s with episodes of nausea. On examination patient had just received 0.5 of IV Ativan for nausea in the ER and was drowsy and complaining of heaviness in her legs. Patient otherwise denies any other complaints. Review of Systems 2 General: Reports: 10 or more systems reviewed and unremarkable except in HPI and below Const: Denies: fever(s), chills, body aches, change in appetite, change in weight, malaise, night sweats, diaphoresis, change in sleep pattern, daytime sleepiness or snoring Eyes: Denies: change in vision, blurry vision, photophobia, eye discomfort or eye discharge ENMT: Denies: throat pain, enlarged tonsils, hoarseness, mouth pain, oral sores, dry mouth, tinnitus, nasal congestion or post nasal drip Card: Denies: chest pain, palpitations, irregular heart rhythm, edema, swelling of feet/ankles, lightheadedness, syncope, pre-syncope, dyspnea on exertion, orthopnea, leg pain with exertion or acrocyanosis Resp: Denies: dyspnea, productive cough, non-productive cough, wheezing, stridor, pain on inspiration, change in phlegm color, hemoptysis or chest congestion GI: Denies: abdominal pain, nausea, vomiting, hematemesis, coffee ground emesis, dysphagia, heartburn, diarrhea, constipation, bloating, GI cramping, change in bowel habits, pain on defecation, hematochezia or melena : Denies: flank pain, dysuria, urinary frequency, urinary urgency, urinary hesitancy, nocturia or hematuria Musc: Denies: neck pain, back pain, extremity pain, joint pain, joint swelling, joint redness, joint stiffness or limited range of motion Neuro: Denies: headache(s), numbness in extremities, weakness in extremities, sensory changes, lack of coordination, difficulty walking, frequent falls, dizziness, vertigo, confusion, Slurred speech present, difficulty communicating thoughts or seizure-like activity Psych: Denies: anxiety, depression, mood swings, panic attacks, hopelessness or irritability Endo: Denies: polyuria, polydipsia, tired all the time, cold intolerance, excessive sweating, flushing or heat intolerance Sean/Lymph: Denies: easy bruising or easy bleeding All/Imm: Denies: tongue swelling, facial swelling or acute wheezing Medications/Allergies Home Medications Medication Instructions Recorded Confirmed Last Taken Type cetirizine 10 mg tablet (Zyrtec) 10 mg PO DAILY PRN Allergy Symptoms 02/05/21 10/31/23 03/06/22 History magnesium oxide 500 mg PO EVERY OTHER DAY 02/05/21 10/31/23 03/06/22 History propafenone 225 mg tablet 225 mg PO Q8H 02/05/21 10/31/23 10/31/23 History rivaroxaban 20 mg tablet (Xarelto) 20 mg PO DAILY 02/05/21 10/31/23 10/31/23 History guaifenesin 1,200 mg tablet, 1,200 mg PO Q12H PRN Congestion 03/06/22 10/31/23 Unknown History extended release 12 hr (Mucinex) amoxicillin 500 mg capsule 2,000 mg PO ONCE 10/31/23 10/31/23 10/31/23 History cholecalciferol (vitamin D3) 25 25 mcg PO Q7D 10/31/23 10/31/23 Unknown History mcg (1,000 unit) tablet (Vitamin D3) latanoprost 0.005 % eye drops 1 drp ophthalmic (eye) QPM 10/31/23 10/31/23 10/30/23 History Allergies Allergy/AdvReac Type Severity Reaction Status Date / Time prednisone 1% optical Allergy Unknown Unknown Uncoded 10/31/23 10:09 PFSH Acute 2 PFSH: Medical History Dyslipidemia Hypertension Atrial fibrillation Family History Father Cancer Social History Smoking and tobacco/nicotine status: never used tobacco/nicotine Vitals/I&O/Wt Last Vital Signs Temp 98.1 F 10/31/23 10:06 Pulse 50 L 10/31/23 11:02 Resp 18 10/31/23 11:02 BP 112/68 10/31/23 11:02 Pulse Ox 96 10/31/23 11:02 O2 Del Method Room Air 10/31/23 11:02 Weight last 48 hrs Weight 78.471 kg Physical Exam 2 Narrative: General: No acute distress, AO x3 drowsy, anxious HEENT: PERRLA, pupils bilaterally equal and reactive Chest: Normal vesicular breath sounds, no added sounds, equal good air entry bilaterally CVS: S1-S2 irregular, bradycardia, no gallops, no rubs Abdomen: Soft, nontender, no organomegaly, bowel sounds present Neuro: No focal deficits, no facial deformity, AO x3, power 5/5 in all limbs Data 10/31/23 10:56 10/31/23 10:56 A&P Assessment and plan (1) Accidental overdose: Accidental overdose of propafenone. Took around 1200 mg of propafenone overall. Care discussed in detail by poison control in the ER by ER provider. They recommend monitoring for QTc and sodium bicarbonate if needed. Half-life of medication is around 4-10 hours. Will need to monitor overall for 30 to 40 hours but more closely for the next 6 to 7 hours. Will have to monitor EKG to watch for bradycardia, QRS widening or prolongation of QTc. EKG to be done every 6 hours. Telemetry. Patient already received 1 g of glucagon in the ER. Not much improvement in the heart rate or symptoms. Will repeat 1 more dose of glucagon. If not helping we will plan for 150 mg of sodium bicarbonate. If does not improve will plan for low-dose dopamine. Cardiology has been consulted for possible need of transvenous pacemaker if needed. Monitor electrolytes. Target magnesium around 2, potassium around 4. Will try to avoid QTc prolonging medications. Hold off on Zofran. Phenergan 12.5 every 6 hours as needed for nausea. Try to avoid Ativan. Liquid diet. Qualifiers: Encounter type: initial encounter Qualified Code(s): T50.901A - Poisoning by unspecified drugs, medicaments and biological substances, accidental (unintentional), initial encounter (2) Atrial fibrillation: Hold Rythmol. Continue with home dose of Xarelto. (3) Hypertension: Goal blood pressure less than 140/90 MAG. Monitor regularly. Plan Full code Clear liquid diet Famotidine for PUD prophylaxis Xarelto will be sufficient for DVT prophylaxis. Attestations 2 Medical Necessity Statement*: Admission for more than 2 midnights for monitoring in setting of accidental overdose of propafenone Critical Care Time: The high probability of a clinically significant, sudden or life threatening deterioration of the patient's [cardiac] system(s) required my full and direct attention, intervention and personal management. The critical care time is as shown. This time is in addition to time spent performing any reported procedures but includes the following: [x] Data and vital sign review and interpretation [x] Patient assessment, examination and intervention [x] Documentation [x] Medication orders and management Critical Care Time (min): 70 Coding Level of Care Code Critical Care >/= 30 minutes Critical care time (in minutes): 70 The high probability of a clinically significant, sudden or life threatening deterioration, as referenced in this documentation, required my full and direct attention, intervention and personal management. The critical care time shown is in addition to time spent performing any reported separately billable procedures and includes the following: [x] Data and vital sign review and interpretation [x ] Patient assessment, examination and intervention [x] Medication orders and management [x] Patient/Family updates as able [x] Care Coordination and Documentation. Diagnoses Accidental overdose T50.901A Encounter type: initial encounter Atrial fibrillation I48.91 Hypertension I10
[2023-10-31] MEDS: sodium chloride 0.9% 1,000 ML 100 ML IV (12:03)
--- NOTE | 2023-10-31 12:13 | ECG_ITS ---
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 Measurements Intervals [place] Rate: 50 P: 35 TN: 228 QRS: 230 QRSD: 168 T: 30 QT: 496 QTc: 456 Interpretive Statements SINUS BRADYCARDIA WITH FIRST DEGREE AV BLOCK RIGHT AXIS DEVIATION [QRS AXIS > 100] RIGHT BUNDLE BRANCH BLOCK [120+ ms QRS DURATION, UPRIGHT V1, 40+ ms S IN I/aVL/V4/V5/V6] Compared to ECG 10/31/2023 11:25:49 Sinus arrhythmia no longer present Electronically Signed On 10-31-2023 17:23:33 CDT by Madhu Hector M.D. [id number]
[2023-10-31 12:29] LABS: Procalcitonin 0.04 ng/mL (0-0.5)
--- NOTE | 2023-10-31 12:44 | PC.NURSE ---
PER NUHA NICHOLS PT DAUGHTER REFUSED GLUCAGON IVP STATING IT DOESN'T HELP ANYTHING IN REFERENCE TO PT NAUSEA.
--- NOTE | 2023-10-31 12:48 | PC.NURSE ---
NUHA NICHOLS RELAYED MESSAGE TO THIS NURSE THAT ADMITTING HOSPITALIST STATED TO NOT GIVE PHENERGAN
--- NOTE | 2023-10-31 12:50 | PM.CONSULT ---
Providers/Reason For Consult Consulting Physician/Specialty*: Madhu Hector MD/ Cardiology Reason for Consult*: Propafenone overdose Requesting Physician: Dr Mercado Primary Care Provider: Selene Neves DO History of Present Illness History of Present Illness Ximena Guadarrama is a 68 year old female with past medical history of atrial fibrillation on propafenone and Xarelto who presented to hospital after accidentally overdosing on propafenone. She was supposed to take her antibiotics prior to dental procedure however took 5 tablets of propafenone. This was earlier this morning a few hours before presentation. Initially after taking the medicines was feeling well however recently is noticing nausea. She has sinus bradycardia. Intraventricular conduction delay. She is drowsy however recently received Ativan. Review of Systems Const: Denies: fever(s) or chills Card: Denies: chest pain, palpitations, irregular heart rhythm, swelling of feet/ankles, lightheadedness, pre-syncope, dyspnea on exertion, orthopnea or leg pain with exertion Resp: Denies: dyspnea or productive cough Musc: Denies: neck pain or back pain Neuro: Denies: headache(s) or dizziness Psych: Denies: anxiety, depression, suicidal ideation or homicidal ideation Sean/Lymph: Reports: easy bruising and easy bleeding Medications/Allergies Home Medications Medication Instructions Recorded Confirmed Last Taken Type cetirizine 10 mg tablet (Zyrtec) 10 mg PO DAILY PRN Allergy Symptoms 02/05/21 10/31/23 03/06/22 History magnesium oxide 500 mg PO EVERY OTHER DAY 02/05/21 10/31/23 03/06/22 History propafenone 225 mg tablet 225 mg PO Q8H 02/05/21 10/31/23 10/31/23 History rivaroxaban 20 mg tablet (Xarelto) 20 mg PO DAILY 02/05/21 10/31/23 10/31/23 History guaifenesin 1,200 mg tablet, 1,200 mg PO Q12H PRN Congestion 03/06/22 10/31/23 Unknown History extended release 12 hr (Mucinex) amoxicillin 500 mg capsule 2,000 mg PO ONCE 10/31/23 10/31/23 10/31/23 History cholecalciferol (vitamin D3) 25 25 mcg PO Q7D 10/31/23 10/31/23 Unknown History mcg (1,000 unit) tablet (Vitamin D3) latanoprost 0.005 % eye drops 1 drp ophthalmic (eye) QPM 10/31/23 10/31/23 10/30/23 History Allergies Allergy/AdvReac Type Severity Reaction Status Date / Time prednisone 1% optical Allergy Unknown Unknown Uncoded 10/31/23 10:09 Current Medications Generic Name Dose Route Start Last Admin Trade Name Freq PRN Reason Stop Dose Admin Sodium Chloride 1,000 mls @ 100 mls/hr 10/31/23 11:51 10/31/23 12:03 Sodium Chloride 0.9% IV 100 mls/hr .Q10H YUSUF Administration PFSH Acute PFSH: Medical History Dyslipidemia Hypertension Atrial fibrillation Family History Father Cancer Social History Smoking and tobacco/nicotine status: never used tobacco/nicotine Vitals/I&O/Wt Last Vital Signs Temp 98.1 F 10/31/23 10:06 Pulse 46 L 10/31/23 12:30 Resp 12 10/31/23 12:30 BP 101/62 10/31/23 12:30 Pulse Ox 96 10/31/23 12:30 O2 Del Method Room Air 10/31/23 12:30 10/30/23 10/31/23 10/31/23 22:59 06:59 14:59 Intake Total 1000 / 1000 Balance 1000 / 1000 Weight last 48 hrs Weight 173 lb Physical Exam Narrative: GENERAL: Patient is alert, awake and oriented x3. [] NECK: No jugular vein distension. [] HEENT: No cyanosis. No icterus. No pallor. [] HEART: Regular S1 and S2. No murmur, rub or gallop. [] LUNGS: Clear to auscultate bilaterally. [] CENTRAL NERVOUS SYSTEM: Grossly nonfocal. [] EXTREMITIES: Lower extremities with 1+ edema bilaterally. Data 11/01/23 03:47 11/01/23 03:47 A&P Assessment and plan (1) Accidental overdose: Qualifiers: Encounter type: initial encounter Qualified Code(s): T50.901A - Poisoning by unspecified drugs, medicaments and biological substances, accidental (unintentional), initial encounter (2) Atrial fibrillation: (3) Hypertension: Plan Patient had accidental overdose of propafenone. Monitor QTc/QRS and put on telemetry. Can be observed in ICU. She is mildly bradycardic however heart rate at home also stays in 50s. Keep holding propafenone and all other rate controlling medications at this time. If becomes hemodynamically unstable, we will proceed with a temporary transvenous pacemaker. Glucagon has been administered. Hypertonic saline can be considered if hemodynamically worsens. Will need to be observed till tomorrow evening Thank you for involving us with care of this patient. We will continue to follow. Please call with questions. Consult Attestations Medical Necessity Statement: Care expected to cross 2 midnights. Coding Level of Care Code Acute Code for [facility] Fwd Diagnoses Accidental overdose T50.901A Encounter type: initial encounter Atrial fibrillation I48.91 Hypertension I10
--- NOTE | 2023-10-31 13:11 | PC.NURSE ---
CALLED ICU TO GIVE REPORT ON ER 4, WAS TOLD THAT ACCEPTING NURSE WILL CALL BACK WHEN READY FOR REPORT D/T ICU NURSE CURRENTLY HAVING 3 PTS AND NEEDING TO DC PT.
[2023-10-31] MEDS: sodium bicarbonate 150 MEQ in dextrose 5% 250 ML 250 MEQ IV (13:56)
[2023-10-31 16:40] LABS: Iron 94 ug/dL (37-145); Percent Saturation 34.9 % (20-50); Total Iron Binding Capacity 269 mcg/dl; Unsaturated Iron Binding 175 ug/dL (112-347)
[2023-10-31 16:56] LABS: Vitamin B12 427 pg/mL (232-1245)
--- NOTE | 2023-10-31 17:54 | ECG_ITS ---
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 Measurements Intervals [place] Rate: 61 P: 19 SD: 214 QRS: 259 QRSD: 146 T: 56 QT: 458 QTc: 462 Interpretive Statements SINUS RHYTHM WITH FIRST DEGREE AV BLOCK RIGHT AXIS DEVIATION [QRS AXIS > 100] RIGHT BUNDLE BRANCH BLOCK [120+ ms QRS DURATION, UPRIGHT V1, 40+ ms S IN I/aVL/V4/V5/V6] TYPE 3 BRUGADA PATTERN (NON-DIAGNOSTIC) [COVED/SADDLEBACK ST ELEVATION > 0.1mV IN 2 OF V1-3] Compared to ECG 10/31/2023 12:13:32 ST (T wave) deviation now present Sinus bradycardia no longer present Electronically Signed On 10-31-2023 17:20:21 CDT by Madhu Hector M.D. [email or web address] Medical Technologieslos angeles [facility].[employer]/store/[id number]
[2023-10-31] MEDS: pantoprazole 40 mg SDV IVP (17:58)
[2023-10-31 18:43] LABS: Anion Gap 12.6 (5-19); Blood Urea Nitrogen 13 mg/dL (8-23); Calcium 7.9 mg/dL (8.5-10.5); Carbon Dioxide 27 mmol/L (22-29); Chloride 102 mmol/L (98-107); Creatinine Clr Calc Pharmacy 69.1481; Glucose 114 mg/dL (65-115); Osmolality Calculated 287 mOsm/kg (285-295); Potassium 3.6 mmol/L (3.5-5.1); Sodium 138 mmol/L (136-145)
[2023-10-31 19:15] LABS: Amphetamines Screen Urine Negative (Negative); Barbiturates Screen Urine Negative (Negative); Benzodiazepines Screen Urine Positive (Negative); Cocaine Screen Urine Negative (Negative); Opiate Screen Urine Negative (Negative); PCP Screen Urine Negative (Negative); THC Screen Urine Negative (Negative)
[2023-10-31 19:19] LABS: Glucose Urine UA Trace (Normal); Ketones Urine Negative (Negative); Protein Urine Neg (Negative); Specific Gravity, Urine 1.015 (1.005-1.030); Urine Appearance Hazy (CLEAR); Urine Color Light yellow (Yellow); pH Urine 8 (5-7)
[2023-10-31 19:20] LABS: Add Urine Microscopic? YES; Bilirubin Urine Neg (Negative); Blood Urine Neg (Negative); Leukocyte Esterase Urine Negative (Negative); Nitrate Urine Negative (Negative); Sulfosalicylic Acid Urine Negative (Negative); Urobilinogen Urine Norm (Negative)
[2023-10-31 19:22] LABS: WBC Urine 0-4 /hpf (0-5)
[2023-10-31 19:23] LABS: Add Urine Culture? No; Amorphous Sediment Urine 1+ /hpf; Bacteria Urine TRACE /hpf; Mucus Urine TRACE /hpf; Squamous Epithelial Cell Urine 0-4 /hpf (0-5)
--- NOTE | 2023-10-31 23:54 | ECG_ITS ---
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 Measurements Intervals [place] Rate: 63 P: 60 [place]: 251 QRS: -84 QRSD: 154 T: 85 QT: 360 QTc: 370 Interpretive Statements SINUS RHYTHM WITH FIRST DEGREE AV BLOCK LEFT AXIS DEVIATION [QRS AXIS < -30] RIGHT BUNDLE BRANCH BLOCK [120+ ms QRS DURATION, UPRIGHT V1, 40+ ms S IN I/aVL/V4/V5/V6] Compared to ECG 10/31/2023 17:12:03 Left-axis deviation now present Right-axis deviation no longer present ST (T wave) deviation no longer present Electronically Signed On 11-01-2023 16:58:28 CDT by Madhu Hector M.D. [email or web address].[email or web address]/[id number]
[2023-11-01] VITALS (14 sets, daily range): BP systolic 117–152; BP diastolic 68–86; PULSE 59–71; RESP 15–23; TEMP 36.5; O2SAT 95–100; BMI 27.8
[2023-11-01 04:37] LABS: Basophils % 0.3 %; Eosinophils % 0.2 %; Hematocrit 32.7 % (36-47); Lymphocytes # 1.6 10^3/uL (0.8-4.8); Lymphocytes % 25.9 %; Mean Corpuscular HGB Conc 35.2 g/dL (30-55); Mean Corpuscular Hemoglobin 30.5 pg (27-33); Mean Corpuscular Volume 86.7 fl (85-98); Mean Platelet Volume 11.1 fL (7.4-10.4); Monocytes # 0.5 10^3/uL (0.2-0.9); Neutrophils % 65.3 %; Nucleated Red Blood Cells % 0 %; Platelet Count 180 10^3/cmm (157-399); Red Blood Count 3.77 10^6/uL (3.85-5.65); Red Cell Distribution Width 11.9 % (12.1-15.1); White Blood Count 5.98 10^3/uL (3.29-11.43)
[2023-11-01 04:48] LABS: Estmated Average Glucose 85; Hemoglobin A1C 4.6 % (4.0-6.0)
[2023-11-01 04:57] LABS: Alanine Aminotransferase 10 U/L (0-33); Albumin Level 3.3 g/dL (3.5-5.2); Alkaline Phosphatase 60 U/L (35-105); Anion Gap 11.4 (5-19); Aspartate Amino Transferase 14 U/L (0-32); Blood Urea Nitrogen 9 mg/dL (8-23); Calcium 8.5 mg/dL (8.5-10.5); Carbon Dioxide 24 mmol/L (22-29); Chloride 106 mmol/L (98-107); Creatinine Clr Calc Pharmacy 69.1481; Globulin 2.3 g/dL (1.3-4.6); Glucose 73 mg/dL (65-115); Magnesium 1.9 mg/dL (1.7-2.3); Osmolality Calculated 283 mOsm/kg (285-295); Phosphorus 3.4 mg/dL (2.5-4.5); Potassium 3.4 mmol/L (3.5-5.1); Sodium 138 mmol/L (136-145); Total Bilirubin 0.5 mg/dL (0.15-1.2); Total Protein 5.6 g/dL (6.6-8.7)
[2023-11-01 04:59] LABS: Chol HDL Ratio 2.65 mg/dL (0.0-4.40); Cholesterol 127 mg/dL (0-200); HDL Cholesterol 48 mg/dL (60-100); LDL Cholesterol Calculated 69 mg/dL (50-129); LDL HDL Ratio 1.44 RATIO (0.00-3.22); Triglycerides 49 mg/dL (0-150)
[2023-11-01 05:03] LABS: Procalcitonin 0.26 ng/mL (0-0.5)
--- NOTE | 2023-11-01 05:54 | ECG_ITS ---
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 Measurements Intervals [place] Rate: 62 P: 58 [place]: 214 QRS: -81 QRSD: 134 T: 63 QT: 434 QTc: 441 Interpretive Statements SINUS RHYTHM WITH FIRST DEGREE AV BLOCK INTRAVENTRICULAR CONDUCTION DELAY [130+ ms QRS DURATION] Compared to ECG 11/01/2023 00:08:05 Intraventricular conduction delay now present Left-axis deviation no longer present Right bundle-branch block no longer present Electronically Signed On 11-01-2023 16:57:53 CDT by Madhu Hector M.D. [email or web address] hospitalT[facility] Travelsdel[email or web address]/store/[id number]
[2023-11-01 06:02] LABS: Folate Level > 20.0 ng/mL (4.8-37.3)
[2023-11-01] MEDS: sodium chloride 0.9% 1,000 ML 100 ML IV (06:05)
--- NOTE | 2023-11-01 07:40 | P.PN_ITS ---
Subjective 2 Subjective: Patient is doing well. Heart rate is improved. Vitals/I&O/Wt Last Vital Signs Temp 97.7 F 11/01/23 04:29 Pulse 59 L 11/01/23 05:52 Resp 15 11/01/23 04:29 BP 126/72 11/01/23 04:29 Pulse Ox 97 11/01/23 04:29 O2 Del Method Room Air 11/01/23 04:29 10/31/23 11/01/23 11/01/23 22:59 06:59 14:59 Intake Total 650 / 1650 1000 / 2650 Output Total 600 / 600 Balance 50 / 1050 1000 / 2050 Weight last 48 hrs Weight 172 lb 13.478 oz Weight 172 lb 13.478 oz Weight 173 lb Physical Exam 2 Narrative: GENERAL: Patient is alert, awake and oriented x3. [] NECK: No jugular vein distension. [] HEENT: No cyanosis. No icterus. No pallor. [] HEART: Regular S1 and S2. No murmur, rub or gallop. [] LUNGS: Clear to auscultate bilaterally. [] CENTRAL NERVOUS SYSTEM: Grossly nonfocal. [] EXTREMITIES: Lower extremities with 1+ edema bilaterally. Data 11/01/23 03:47 11/01/23 03:47 A&P Assessment and plan (1) Accidental overdose: Qualifiers: Encounter type: initial encounter Qualified Code(s): T50.901A - Poisoning by unspecified drugs, medicaments and biological substances, accidental (unintentional), initial encounter (2) Atrial fibrillation: (3) Hypertension: Plan Patient overall stable. Keep holding propafenone 2 more days. Can be discharged home in the evening from cardiology standpoint with close outpatient follow up. Attestations 2 Medical Necessity Statement*: Care expected to cross 2 midnights. Coding Level of Care Code Acute Code for [facility] Fwd Diagnoses Accidental overdose T50.901A Encounter type: initial encounter Atrial fibrillation I48.91 Hypertension I10
[2023-11-01] MEDS: rivaroxaban 10 mg Tablet 20 MG PO (08:02)
--- NOTE | 2023-11-01 11:41 | PC.NURSE ---
Dr. Hector at bedside earlier this AM diet order changed, plan to D/C today. Dr. Mercado at bedside, fluids stopped plan to D/C home this evening if no vs changes Poison control called no n.o. case closed
--- NOTE | 2023-11-01 15:01 | PM.DCS ---
Discharge Providers Date of Admission: 10/31/23 15:46 Date of Discharge: November 01, 2023 Attending Provider at Admission: Filippo Mercado MD Attending Provider at Discharge: Filippo Mercado MD Consults: Cardiology: Dr. Hector Primary Care Provider: Selene Neves DO Diagnoses at Discharge Discharge Diagnosis (1) Accidental overdose: Status: Acute Qualifiers: Encounter type: initial encounter Qualified Code(s): T50.901A - Poisoning by unspecified drugs, medicaments and biological substances, accidental (unintentional), initial encounter (2) Atrial fibrillation: Status: Acute (3) Hypertension: Status: Acute Reason for Visit Reason for Visit: dr appiah, took too much Heart meds by accident Hospital Course Hospital Course Ximena Guadarrama is a 68 year old female with past medical history of atrial fibrillation on propafenone, anticoagulation with Xarelto who was to undergo a dental procedure in few days. Patient was to take 4 tablets of antibiotic prior to her procedure but by mistake instead of taking the antibiotic took 4 extra tablets of propafenone. Overall she took 5 tablets of 4 mg in the morning. She present to the ER complaining of nausea and mild dizziness. In the ER she was found to have heart rate running in 50s with episodes of nausea. On examination patient had just received 0.5 of IV Ativan for nausea in the ER and was drowsy and complaining of heaviness in her legs. Patient otherwise denies any other complaints. Patient was admitted to the ICU for further evaluation and monitoring. She did develop bradycardia with heart rate going down to high 40s with episodes of nausea and vomiting. She was treated with sodium bicarbonate infusion along with IV fluids. She responded well to the treatment and her heart rate has been stable for last 12 hours with improvement in her nausea and vomiting. Her hydration has been well maintained. She has been discharged medically stable condition advised to hold off on home dose of metoprolol for 1 day and to restart on 11/01 morning. Physical Exam Narrative: General: No acute distress, AO x3 HEENT: PERRLA, pupils bilaterally equal and reactive Chest: Normal vesicular breath sounds, no added sounds, equal good air entry bilaterally CVS: S1-S2 irregular, no added sounds, no gallops, no rubs Abdomen: Soft, nontender, no organomegaly, bowel sounds present Neuro: No focal deficits, no facial deformity, AO x3, power 5/5 in all limbs Discharge Data Studies Completed and Pending Laboratory Results WBC 5.98 10^3/uL (3.29-11.43) 11/01/23 03:47 RBC 3.77 10^6/uL (3.85-5.65) L 11/01/23 03:47 Hgb 11.50 g/dL (11.27-16.99) 11/01/23 03:47 Hct 32.7 % (36-47) L 11/01/23 03:47 MCV 86.7 fl (85-98) 11/01/23 03:47 MCH 30.5 pg (27-33) 11/01/23 03:47 MCHC 35.2 g/dL (30-55) 11/01/23 03:47 RDW 11.9 % (12.1-15.1) L 11/01/23 03:47 Plt Count 180 10^3/cmm (157-399) 11/01/23 03:47 MPV 11.1 fL (7.4-10.4) H 11/01/23 03:47 Neut % (Auto) 65.3 % 11/01/23 03:47 Lymph % (Auto) 25.9 % 11/01/23 03:47 [place] % (Auto) 8.0 % 11/01/23 03:47 Eos % (Auto) 0.2 % 11/01/23 03:47 Baso % (Auto) 0.3 % 11/01/23 03:47 Neut # (Auto) 3.90 10^3/uL (1.8-7.7) 11/01/23 03:47 Lymph # (Auto) 1.6 10^3/uL (0.8-4.8) 11/01/23 03:47 [place] # (Auto) 0.5 10^3/uL (0.2-0.9) 11/01/23 03:47 Eos # (Auto) 0.0 10^3/uL (0.0-0.8) 11/01/23 03:47 Baso # (Auto) 0.0 10^3/uL (0.0-0.1) 11/01/23 03:47 Nucleated RBC % (auto) 0 % 11/01/23 03:47 Nucleated RBCs # 0.0 /100WBC 11/01/23 03:47 Sodium 138 mmol/L (136-145) 11/01/23 03:47 Potassium 3.4 mmol/L (3.5-5.1) L 11/01/23 03:47 Chloride 106 mmol/L (98-107) 11/01/23 03:47 Carbon Dioxide 24 mmol/L (22-29) 11/01/23 03:47 Anion Gap 11.4 (5-19) 11/01/23 03:47 BUN 9 mg/dL (8-23) 11/01/23 03:47 Creatinine 0.5 mg/dL (0.5-0.9) 11/01/23 03:47 GFR Calculation 122.0 mL/min (90-130) 11/01/23 03:47 Glucose 73 mg/dL (65-115) 11/01/23 03:47 Estimat Average Glucose 85 11/01/23 03:47 Hemoglobin A1c 4.6 % (4.0-6.0) 11/01/23 03:47 Calculated Osmolality 283 mOsm/kg (285-295) L 11/01/23 03:47 Calcium 8.5 mg/dL (8.5-10.5) 11/01/23 03:47 Phosphorus 3.4 mg/dL (2.5-4.5) 11/01/23 03:47 Magnesium 1.9 mg/dL (1.7-2.3) 11/01/23 03:47 Iron 94 ug/dL (37-145) 10/31/23 10:56 TIBC 269 mcg/dl 10/31/23 10:56 % Saturation 34.9 % (20-50) 10/31/23 10:56 Unsat Iron Binding 175 ug/dL (112-347) 10/31/23 10:56 Total Bilirubin 0.5 mg/dL (0.15-1.2) 11/01/23 03:47 AST 14 U/L (0-32) 11/01/23 03:47 ALT 10 U/L (0-33) 11/01/23 03:47 Alkaline Phosphatase 60 U/L (35-105) 11/01/23 03:47 Total Protein 5.6 g/dL (6.6-8.7) L 11/01/23 03:47 Albumin 3.3 g/dL (3.5-5.2) L 11/01/23 03:47 Globulin 2.3 g/dL (1.3-4.6) 11/01/23 03:47 Triglycerides 49 mg/dL (0-150) 11/01/23 03:47 Cholesterol 127 mg/dL (0-200) 11/01/23 03:47 LDL Cholesterol, Calc 69 mg/dL (50-129) 11/01/23 03:47 HDL Cholesterol 48 mg/dL (60-100) L 11/01/23 03:47 LDL/HDL Ratio 1.44 RATIO (0.00-3.22) 11/01/23 03:47 Cholesterol/HDL Ratio 2.65 mg/dL (0.0-4.40) 11/01/23 03:47 Vitamin B12 427 pg/mL (232-1245) 10/31/23 10:56 Folate > 20.0 ng/mL (4.8-37.3) 11/01/23 03:47 Procalcitonin 0.26 ng/mL (0-0.5) 11/01/23 03:47 TSH 2.14 uIU/mL (0.27-4.20) 10/31/23 10:56 Urine Color Light yellow (Yellow) 10/31/23 18:15 Urine Appearance Hazy (CLEAR) A 10/31/23 18:15 Urine pH 8 (5-7) H 10/31/23 18:15 Ur Specific [place] 1.015 (1.005-1.030) 10/31/23 18:15 Urine Protein Neg (Negative) 10/31/23 18:15 Urine Glucose (UA) Trace (Normal) H 10/31/23 18:15 Urine Ketones Negative (Negative) 10/31/23 18:15 Urine Blood Neg (Negative) 10/31/23 18:15 Urine Nitrate Negative (Negative) 10/31/23 18:15 Urine Bilirubin Neg (Negative) 10/31/23 18:15 Prot Sulfosalicylic Acd Negative (Negative) 10/31/23 18:15 Urine Urobilinogen Norm mg/dL (Negative) 10/31/23 18:15 Ur Leukocyte Esterase Negative (Negative) 10/31/23 18:15 Urine RBC None /hpf (0-2) 10/31/23 18:15 Urine WBC 0-4 /hpf (0-5) H 10/31/23 18:15 Ur Squamous Epith Cells 0-4 /hpf (0-5) H 10/31/23 18:15 Amorphous Sediment 1+ /hpf 10/31/23 18:15 Urine Bacteria Trace /hpf (NONE) 10/31/23 18:15 Urine Mucus Trace /hpf 10/31/23 18:15 Salicylates < 0.3 mg/dL (3-10) L 10/31/23 10:56 Urine Opiates Screen Negative ng/mL (Negative) 10/31/23 18:15 Acetaminophen < 5.0 ug/mL (10-30) L 10/31/23 10:56 Ur Barbiturates Screen Negative ng/mL (Negative) 10/31/23 18:15 Ur Phencyclidine Scrn Negative ng/mL (Negative) 10/31/23 18:15 Ur Amphetamines Screen Negative ng/mL (Negative) 10/31/23 18:15 U Benzodiazepines Scrn Positive ng/mL (Negative) H 10/31/23 18:15 Urine Cocaine Screen Negative ng/mL (Negative) 10/31/23 18:15 U Marijuana (THC) Screen Negative ng/mL (Negative) 10/31/23 18:15 Vitals Last Vital Signs Temp 97.7 F 11/01/23 04:29 Pulse 63 11/01/23 12:00 Resp 17 11/01/23 12:00 BP 128/77 11/01/23 12:00 Pulse Ox 98 11/01/23 12:00 O2 Del Method Room Air 11/01/23 04:29 Discharge Plan Discharge Patient Disposition: Home Condition: Stable Prescriptions: No Action propafenone 225 mg tablet 225 mg PO Q8H magnesium oxide 250 mg magnesium tablet 500 mg PO EVERY OTHER DAY cetirizine [Zyrtec] 10 mg tablet 10 mg PO DAILY PRN (Reason: Allergy Symptoms) Xarelto 20 mg tablet 20 mg PO DAILY Rx Instructions: must administer with evening meal guaifenesin [Mucinex] 1,200 mg Tablet Extended Release 12hr 1,200 mg PO Q12H PRN (Reason: Congestion) amoxicillin 500 mg capsule 2,000 mg PO ONCE Rx Instructions: BEFORE DENTAL PROCEDURE ON 10/31/2023 latanoprost 0.005 % drops 1 drp ophthalmic (eye) QPM Vitamin D3 25 mcg (1,000 unit) Tablet 25 mcg PO Q7D Rx Instructions: ON MONDAY Discharge Orders: Discharge Order (Routine); Ordered 11/01/23 Ordered By: Filippo Mercado Referrals: Selene Neves DO [Primary Care Provider] - 7-10 days Discharge Diet: Cardiac Discharge Activity: Resume usual activity and Increase activity as tolerated Patient Instructions: Opioid Safety Activity Restrictions/Additional Instructions: Hold off on the propafenone dose for tonight. You can restart at a morning dose on 11/01. Discharge Attestations Time Spent in Discharge Care*: greater than 30 min Specific Discharge Activities: educating patient, educating and/or supporting family/caregiver, discussing with pcp/other providers, discussing with case monitor/social workers/dc planners, documenting/other paperwork and evaluating patient/reviewing data Status at Discharge: Cognitive status at discharge: cognitively intact, Behavioral status at discharge: cooperative, Functional status at discharge: independent ambulation, Overall status at discharge: patient is back to baseline Quality Metrics Clinical Quality Measures [ No reported AMI, CVA or VTE this stay] Coding Level of Care Code 02555 Total time (in minutes) for Discharge: 60 Diagnoses Accidental overdose T50.901A Encounter type: initial encounter Atrial fibrillation I48.91 Hypertension I10
--- NOTE | 2023-11-01 16:20 | PC.NURSE ---
Patient is discharged by primary nurse, Babatunde. Patient and belongings taken to private vehicle via wheelchair by this nurse, accompanied by family. No complaints.
--- NOTE | 2023-11-01 18:49 | PC.NURSE ---
All D/C instructions educated to patient, signed D/C form left building transported by daughter approximately 1600
== END 2023-11-01 16:15 | disposition home or self-care (01) ==
LOC: ER 11:44 → ICU 13:29
PROVIDERS: Physician Assistant; Admitting Provider Student in an Organized Health Care Education/Training Program; Emergency Provider Family Medicine; PCP Family Medicine; Visit Provider Student in an Organized Health Care Education/Training Program
DX: T36.91XA Poisoning by unspecified systemic antibiotic, accidental (unintentional), initial encounter (principal); T46.2X1A Poisoning by other antidysrhythmic drugs, accidental (unintentional), initial encounter; I48.91 Unspecified atrial fibrillation; I10 Essential (primary) hypertension; Z79.01 Long term (current) use of anticoagulants; R00.1 Bradycardia, unspecified
CPT/HCPCS: 36415; 80048; 80053; 80061; 80306; 80307; 81001; 82607; 82746; 83036; 83540; 83550; 83735; 84100; 84145; 84443; 85025; 93005; 94664; 96365; 96375; 96376; 99285; C9113; G0378; J1610; J2060; J7030; J7070

== ENCOUNTER → 2024-03-06 12:56 | Outpatient (BNVA) | payer MEDICARE, SELFPAY | PROVIDERS: PCP Family Medicine; Visit Provider Internal Medicine | DX: I10 Essential (primary) hypertension (principal); E78.5 Hyperlipidemia, unspecified; I48.91 Unspecified atrial fibrillation | CPT/HCPCS: 99214 ==

== ENCOUNTER → 2024-08-28 09:48 | Outpatient (BNVA) | payer MEDICARE, SELFPAY | PROVIDERS: PCP Family Medicine; Visit Provider Nurse Practitioner Family | DX: L30.8 Other specified dermatitis (principal); L85.3 Xerosis cutis; L82.1 Other seborrheic keratosis; L81.4 Other melanin hyperpigmentation; L57.8 Other skin changes due to chronic exposure to nonionizing radiation | CPT/HCPCS: 99214 ==

== ENCOUNTER → 2024-09-25 08:49 | Outpatient (BNVA) | payer MEDICARE, SELFPAY | PROVIDERS: PCP Family Medicine; Visit Provider Nurse Practitioner Family | DX: L30.8 Other specified dermatitis (principal); L85.3 Xerosis cutis | CPT/HCPCS: 99214 ==

== ENCOUNTER → 2025-03-12 09:42 | Outpatient (BNVA) | payer MEDICARE, SELFPAY | PROVIDERS: PCP Family Medicine; Visit Provider Internal Medicine | DX: I10 Essential (primary) hypertension (principal); I48.91 Unspecified atrial fibrillation; Z79.01 Long term (current) use of anticoagulants; I77.9 Disorder of arteries and arterioles, unspecified | CPT/HCPCS: 99214 ==

== ENCOUNTER 2025-03-26 09:17 | Outpatient (CLI) | payer MEDICARE, SELFPAY ==
--- NOTE | 2025-03-26 09:30 | USCV_ITS ---
Ximena Guadarrama Age: 69 Gender: F : 1955 Exam Date: 03/26/2025 09:52 Ordering Phys: Madhu Hector M.D ([email or web address]) Technologist: Exam [place] [facility] [place]: carotid artery disease Risk Factors: Previous Vascular Surgery: Right Brachial BP: / Left Brachial BP: / Right Left Velocity (cm/s) Spectral Plaque Velocity (cm/s) Spectral Plaque Syst/Diast Broadening Syst/Diast Broadening 94.40/ 25.80 Prox CCA 79.10 / 32.60 72.50/ 23.10 Mid CCA 64.80 / 21.30 73.70/ 29.70 Distal CCA 70.50 / 25.10 47.20/ 15.40 Prox ICA 52.50 / 21.30 75.90/ 25.70 Mid ICA 68.40 / 32.30 78.80/ 35.40 Distal ICA 43.90 / 14.50 57.60 ECA 62.00 0.60 ICA/CCA 0.70 Antegrade Vertebral Antegrade 44.40/ 10.50 cm/s 56.30/ 17.30 cm/s Tri Subclavian Bi 80.10 75.70 CONCLUSIONS Right ICA stenosis <50%. Mild atheromatous plaque right carotid bulb/ICA. Left ICA stenosis <50%. Mild atheromatous plaque left carotid bulb/ICA. Intimal thickening in the common carotid arteries and internal carotid arteries bilaterally. Normal antegrade Doppler flow noted in the right vertebral artery. Normal antegrade Doppler flow noted in the left vertebral artery. Placido Jerez MD (Electronically Signed) Final Date: 26 March 2025 15:12 S
== END 2025-03-26 09:18 | disposition home or self-care (01) ==
LOC: RAD 09:18
PROVIDERS: PCP Family Medicine; Visit Provider Internal Medicine
DX: I77.9 Disorder of arteries and arterioles, unspecified (principal); R42 Dizziness and giddiness
CPT/HCPCS: 93880

== ENCOUNTER → 2025-04-17 14:13 | Outpatient (BNVA) | payer MEDICARE, SELFPAY | PROVIDERS: PCP Family Medicine; Visit Provider Nurse Practitioner Family | DX: L82.1 Other seborrheic keratosis (principal); L57.8 Other skin changes due to chronic exposure to nonionizing radiation; L81.4 Other melanin hyperpigmentation; D18.01 Hemangioma of skin and subcutaneous tissue; L57.0 Actinic keratosis | CPT/HCPCS: 17000; 99213 ==